=== PATIENT | male | born 1975 | race Caucasian/White ===

== ENCOUNTER 2020-05-04 21:50 | Emergency (ER) | payer MEDICAID, SELFPAY ==
[2020-05-04 21:51] VITALS: BP 112/71; PULSE 113; RESP 20; TEMP 36.3; O2SAT 96; BMI 30.8
--- NOTE | 2020-05-04 22:31 | CT_ITS ---
HISTORY: POST-OP MID ABDOMEN PAIN WITH NAUSEA AND VOMITING,PT HAD HERNIA REPAIR ON . AND HAS A DRAIN IN PLACE TECHNIQUE: Helically acquired images were obtained of the abdomen and pelvis without oral or IV contrast. A radiation dose optimization technique was used for this scan. COMPARISON: None FINDINGS: # of images incl. paperwork: 504 LUNG BASES: Trace basilar atelectasis within the lingula, the right middle lobe, and the right lower lobe. CT abdomen: Skin michael are present within the midline of the upper abdomen extending around the umbilicus and to the upper pelvis. There is gas and fluid within the incision. A drain is present from a left approach into the incision between the rectus abdominis musculature. Just above the umbilicus, within the midline, and into the right of the midline there is a 6.3 x 2.5 x 3.1 cm mass. This mass contains gas. It has a central density of 25 Hounsfield units. It is superficial to the transcutaneous drain within the midline at the region of the rectus abdominis muscles. There is some induration in the anterior abdominal wall. Some additional skin michael are present at the right hemipelvis. Deep to the right hemipelvis kidneys michael is indurated fat and a small amount of gas without a focal fluid collection or mass. Degenerative disc disease is mild. Some facet arthropathy within the lower lumbar spine. Some hip arthritis. Minimal SI joint arthritis. The gallbladder is distended without gallbladder wall thickening or gallstones perceived.. Liver, spleen, pancreas, and adrenal glands are normal. Surgical clips are present on the mid to inferior aspect medially of the left kidney. There is a tiny amount of fluid around the surgical clips. No hydronephrosis. No nephrolithiasis.. The aorta is normal. Retroaortic left renal vein, present in this case, is a normal anatomic variant. Shotty periaortic adenopathy and mesenteric adenopathy is greater than normal There is no intra-or extrahepatic biliary ductal dilatation. CT pelvis: No ascites is present. The prostate gland is not enlarged. The appendix is normal. Series 2 image 122. The bladder is mostly decompressed. A right inguinal hernia is present. There is gas in indurated tissue extending into the right inguinal hernia.. Gas distends the rectum. Bowel gas pattern demonstrates distended loops of small bowel with many air-fluid levels. Bowel wall thickening is not perceived. A transition point is not identified. CT/Abdomen/Pelvis without Cont IMPRESSION: 6.3 x 2.5 x 3.1 cm mass in the midline into the right of midline anterior abdominal wall, above the umbilicus, likely representing an abscess related to the patient's recent midline incision. There is some additional gas and fluid within the incision. It is possible this is just a hematoma, or seroma. Additional gas within the right inguinal region with gas dissecting down into the right inguinal canal along with a small amount of herniated fat. Right lower quadrant skin michael with minimal induration deep to the skin michael. Findings suggestive of small bowel ileus. Evidence of recent surgery the anterior medial inferior aspect of the right kidney. No hydronephrosis. Distended gallbladder. Individualized dose optimization techniques were used for this CT. at 0009 Reported and signed by: Krishna David MD Electronically Signed: Krishna David MD at 0:08 EDT Tel , Service support ,
[2020-05-04 22:46] LABS: Absolute Lymphocyte Count 1.93 X10^3/uL (0.83-4.51); Absolute Neutrophil Count 4.1 X10^3/uL (2.0-7.7); Basophil# 0.02 X10^3/uL; Basophil% 0.3 % (0-1); Eosinophil# 0.44 X10^3/uL; Eosinophils% 6.1 % (0-5); Hematocrit 41.2 % (40-54); Lymphocyte # 1.93 X10^3/ul (4.0); Lymphocyte % 26.7 % (19-41); Mean Corpuscular Volume 91.4 fL (80-94); Monocyte# 0.69 X10^3/uL; Monocyte% 9.5 % (0-10); NRBC Flagged by Analyzer 0 % (0-5); Neutrophil # 4.12 X10^3/uL (2.7-7.7); Platelet Count 207 K/mm3 (150-450); RBC Distribution Width CV 12.2 % (11.6-14.6); RBC Distribution Width SD 40.6 fl (35.1-43.9); Red Blood Count 4.51 M/mm3 (4.6-6.2); White Blood Count 7.2 K/mm3 (4.4-11.0)
[2020-05-04] MEDS: 0.9% Normal Saline 1,000 ML 1000 ML IV (22:49)
[2020-05-04] MEDS: Ondansetron 4 MG/2 ML Vial IV (22:50)
[2020-05-04] MEDS: Morphine 4 MG/ML Syringe IV (22:52)
[2020-05-04 23:00] LABS: ALB/GLOB Ratio 0.9 RATIO (0.9-2.4); AST(SGOT) 17 U/L (15-37); Alanine Aminotransfer ALT/SGPT 19 U/L (16-61); Albumin, Serum 2.9 g/dL (3.2-5.0); Alkaline Phosphatase 59 U/L (45-117); Anion Gap 1 (5-15); BUN 21 mg/dL (7-18); BUN/Creat Ratio 25.1 RATIO (10-20); Calcium,Total 8.4 mg/dL (8.5-10.1); Chloride 108 mmol/L (98-107); Creatinine, Serum 0.84 mg/dL (0.70-1.30); EST Glomerular Filtration Rate 106 mL/min (>60); Est Glom Filt Rate - Afr Amer 129 mL/min (>60); Estimated Creatinine Clearance 113.39 ml/min; Globulin 3.3 g/dL (2.2-4.2); Glucose 104 mg/dL (74-106); Lipase 46 U/L (73-393); Protein, Total 6.2 g/dL (6.4-8.2); Sodium Level 142 mmol/L (136-145)
--- NOTE | 2020-05-04 23:06 | ED.VISSUMM ---
- ER Visit Summary Date of Service: 05/04/20 Chief Complaint: Abdominal pain History of Present Illness: The patient is a 44 M who had an incisional and inguinal hernia repaired by Dr. Yip at [facility] 3 days ago. States that he was admitted overnight. He reports that ever since that time he has had a sharp abdominal pain and feels distended. He reports his pain is 10 of 10 severity. It is worsened by movement and relieved by remaining still with Percocet as well. States is been nauseated and vomited 10 times. Vomited 4 times today. No blood in his emesis. He reports that he had one episode of pain coffee-ground emesis 2 days ago. Patient reports he has not had a bowel movement since surgery. However, he is passing flatus. He has had subjective fever and chills. He complains of generalized weakness. He is concerned that he is dehydrated. Physical Examination: Vitals: Stable. Afebrile. General: Well-nourished and well-developed. Head: Normocephalic atraumatic. Neck: Supple, no lymphadenopathy. No JVD. Nontender. Cardiovascular: Regular rate and rhythm. No murmurs. Respiratory: No respiratory distress. Clear to auscultation bilaterally. Abdominal: Incision is clean, dry, and intact. There is no erythema, induration, or fluctuance. There is a FANNY drain in place with approximate 50 cc of serosanguineous fluid. Soft, moderate diffuse tenderness palpation, nondistended, hyperactive bowel sounds. No guarding, rebound, or peritoneal signs. Back: Nontender. Extremities: Nontender, no edema. Skin: Normal color, no rash. Neurologic: Alert and oriented ?3. Cranial nerves II through XII are intact. Normal strength and sensation. Psych: Normal affect. Test Results: CBC is normal. Chem-7 shows a chloride of 108, CO2 of 33, BUN of 21. LFTs show total protein of 6.2 and albumin 2.9. Lipase normal. UA is negative. Clinical Impression(s) from Imaging Studies Abdomen/Pelvis CT 05/04/20 22:31 IMPRESSION: 6.3 x 2.5 x 3.1 cm mass in the midline into the right of midline anterior abdominal wall, above the umbilicus, likely representing an abscess related to the patient's recent midline incision. There is some additional gas and fluid within the incision. It is possible this is just a hematoma, or seroma. Additional gas within the right inguinal region with gas dissecting down into the right inguinal canal along with a small amount of herniated fat. Right lower quadrant skin michael with minimal induration deep to the skin michael. Findings suggestive of small bowel ileus. Evidence of recent surgery the anterior medial inferior aspect of the right kidney. No hydronephrosis. Distended gallbladder. Individualized dose optimization techniques were used for this CT. at 0009 Reported and signed by: Krishna David MD Electronically Signed: Krishna David MD at 0:08 EDT Tel , Service support , Emergency Department Course and Treatment: After the CT returned I reexamined the patient's abdomen. I suspect this is a seroma. There is no overlying erythema, induration, or fluctuance to suggest infection. He was treated with morphine and Zofran he is resting comfortably. He is given a liter normal saline. Treatment Plan: Due to the possible concern for infection the patient will be discharged on doxycycline and Zofran. I did offer to try to get a hold of his surgeon. However, he reports that he knows of the surgeon is out of town. We discharged instructions to follow-up with his surgeon in 2 days for repeat exam. Return to the emergency department for any worsening symptoms. Disposition: To home in improved and stable condition. Impression: 1 1. 4-day status post incisional hernia repair. This note was generated with [employer] dictation software. It may contain incorrect words, spelling, and punctuation that were not noted in review of the chart prior to signing ED Disposition - Plan for ED Patient: Disposition: Home or Assisted Living Instructions: ED Wound Check Post Op Pain Prescriptions: Doxycycline 100 mg PO BID #20 cap Prescription Printed Ondansetron [Zofran Odt] 4 mg PO Q8H PRN PRN #10 tab PRN Reason: Nausea Prescription Printed Referrals: Doctor,Your [STAFF PHYSICIAN] - 2 Days for wound check
[2020-05-04 23:50] LABS: Bacteria 0 SEEN /hpf (None Seen); Mucous, Urine 0 SEEN /hpf (<or=2+); Red Blood Cells-Urine 0 SEEN /hpf (0-5); Squamous Epithelial Cells - UA 0 SEEN /hpf (0-5); White Blood Cells 0 SEEN /hpf (0-5)
[2020-05-04 23:52] LABS: Color, Urine Straw (Yellow); Glucose, Dipstick Normal (Normal); Ketone-Dipstick 15 mg/dl (Negative); Leukocyte Esterase-Dipstick 25 /ul (Negative); Nitrite-Dipstick Negative (Negative); Occult Blood-Urine Negative /ul (Negative); Protein-Dipstick 30 mg/dl (Negative); Urine Clarity Clear (Clear); Urine Urobilinogen 4 mg/dl (Normal); Urine pH 6.5 (5.0 - 8.0)
[2020-05-04 23:57] LABS: Urine Bilirubin Dipstick 1 mg/dL (Negative)
[2020-05-04 23:58] VITALS: RESP 16
[2020-05-04 23:59] LABS: Amorphous Sediment 1+
[2020-05-05 01:00] VITALS: BP 133/83; PULSE 96; RESP 16; O2SAT 98
[2020-05-05] MEDS: Ondansetron ODT 4 MG Tablet PO (01:42)
[2020-05-05 02:24] VITALS: BP 130/81; PULSE 82; RESP 16; O2SAT 98
== END 2020-05-05 02:25 | disposition home or self-care (01) ==
LOC: ED 23:08
PROVIDERS: Emergency Provider Emergency Medicine
DX: Z98.890 Other specified postprocedural states (principal); Z72.0 Tobacco use
CPT/HCPCS: 74176; 80053; 81001; 83690; 85025; 96361; 96374; 96375; 99284; J7030; A4216; J2405